=== PATIENT | female | born 2000 | race Caucasian/White ===

== ENCOUNTER 2020-12-25 13:21 | Outpatient (REF) | payer MEDICAID, SELFPAY | END 2020-12-25 13:22 | disposition home or self-care (01) | LOC: HO.LAB 13:21 | PROVIDERS: Visit Provider Internal Medicine | DX: Z20.822 Contact with and (suspected) exposure to COVID-19 (principal) | CPT/HCPCS: C9803; U0003; U0005 ==

== ENCOUNTER 2021-05-01 13:06 | Emergency (ER) | payer MEDICAID, SELFPAY ==
[2021-05-01 13:12] VITALS: BP 120/66; PULSE 76; O2SAT 99
[2021-05-01 13:17] VITALS: BP 104/61; PULSE 79; RESP 18; TEMP 36.6; O2SAT 97; BMI 21.7
[2021-05-01 14:06] LABS: COVID-19 Test Negative (Negative)
[2021-05-01 16:49] VITALS: BP 129/75; PULSE 67; RESP 16; TEMP 36.8; O2SAT 99
--- NOTE | 2021-05-01 16:54 | ED_ITS ---
HPI - URI/Sore Throat General Chief Complaint: Upper Respiratory Symptoms Stated Complaint: SAMPSON,BODYACHES,CHILLS,-VACC Time Seen by Provider: 05/01/21 16:40 Source: patient Mode of arrival: ambulatory Limitations: no limitations History of Present Illness HPI Narrative: 20-year-old female here with complaints of cough, chills, rhinorrhea since Thursday. Patient tells me she has had nausea and vomiting additionally. Of note, she has had nausea and vomiting throughout her but this has been managed with pyridoxine at nighttime. Patient tells me that her son is sick at home and has [id number] disease. She did notice several lesions on her hand 2 days ago. No vaginal bleeding, pelvic cramping. Patient's due date is October of 2021 Related Data Previous Rx's Medication Instructions Recorded ondansetron 4 mg disintegrating 4 mg PO Q6H PRN #10 tab 05/01/21 tablet Allergies Allergy/AdvReac Type Severity Reaction Status Date / Time No Known Allergies Allergy Verified 05/01/21 13:16 Review of Systems Review of Systems: Yes all other systems are reviewed and are negative Constitutional: Constitutional: Reports no additional constitutional complaints, Reports body ache(s), Reports chills, Denies fever(s), Denies headache(s) and Denies weakness Eyes: Eyes: Reports no additional eye complaints and Denies change in vision ENT: Reports system reviewed and no additional complaints, except as documented, Denies dizziness, Denies headache(s), Denies nasal congestion, Denies nasal discharge and Denies neck pain Cardiovascular: Cardiovascular: Reports no additional cardiovascular complaints, Denies chest pain, Denies leg edema and Denies dyspnea Respiratory: Respiratory: Reports no additional respiratory complaints, Reports cough and Denies dyspnea Gastrointestinal: Gastrointestinal: Reports no additional gastrointestinal complaints, Denies abdominal pain, Denies diarrhea, Reports nausea and Reports vomiting Genitourinary: Genitourinary: Reports no additional female genitourinary complaints and Denies urinary incontinence Musculoskeletal: Musculoskeletal: Reports no additional musculoskeletal compl aints, Denies back pain, Denies arthralgias, Denies joint swelling, Denies neck pain, Denies numbness and Denies tingling Integumentary/Breasts: Skin/Breast: Reports system reviewed and no additional complaints, except as docu and Reports rash Neurologic: Reports system reviewed and no additional complaints, except as documented, Denies Abnormal speech present, Denies dizziness, Denies headache(s), Denies numbness, Denies tingling and Denies weakness PMFSH Past Medical History Attestation statement: The following information was validated with the patient. Source: old records reviewed and nursing notes reviewed Medical History Asthma Social History Social History Advance Directives: No Advance Directives Information Provided: Yes Patient : Yes Physical Exam Vital Signs: Vital Signs: Last Vital Signs Temp 98.2 F 05/01/21 16:49 Pulse 67 05/01/21 16:49 Resp 16 05/01/21 16:49 BP 129/75 05/01/21 16:49 Pulse Ox 99 05/01/21 16:49 BMI result Body Mass Index 21.7 Const: General: cooperative, healthy appearing, comfortable and no acute distress Orientation/consciousness: patient oriented x3 Limitations: no limitations HENMT: Head: Yes normal to inspection Ears: hearing grossly normal bilaterally and TM's normal bilaterally General nose exam: Normal external nose present Face and sinus: Yes normal facial exam Mouth: Normal oral and palatal mucosa present Throat: Yes posterior oropharynx normal, Yes tonsils normal and Yes uvula midline Eyes: General: appearance normal, both eyes and all related structures Pupils: Equal, round and reactive pupils present Neck: Neck: Yes normal visual inspection Chest: Chest palpation & inspection: normal inspection of the chest Resp: Effort & Inspection: normal respiratory effort Auscultation: clear to auscultation bilaterally Cardio: Rate: regular rate Rhythm: regular rhythm Peripheral pulses: Peripheral pulses 2+ throughout GI: Inspection: Yes normal to inspection Palpation (GI): Soft to palpation and nontender Auscultation: normal bowel sounds Back/Spine/Pelvis: Thoracic/Lumbar Spine: thoracic and lumbar spine normal to inspection Skin: General skin exam: no rashes or lesions noted Neuro: General: patient oriented x3, no focal motor deficits and normal sensation to monofilament Cranial nerves: Yes Equal, round and reactive pupils present Cognition (Neuro): normal cognition Speech: No Abnormal speech present Gait exam (Neuro): Normal gait present Motor exam (neuro): 5/5 motor strength present throughout Extrem: Other: To the palmar aspect of the left hand there are 4-5 pinpoint lesions noted General: Yes normal to inspection Course Course Course Narrative: 20-year-old female here with complaints of URI symptoms since Thursday in addition to vomiting which she has had during her entire . Patient tells me she is here because she has been unable to keep any fluids down and feels like she may be dehydrated. Her son has [id number] and so she feels that she may have this as well. Rapid COVID test is negative. Exam is benign with the exception of several pinpoint lesions are over the palmar aspect the left hand. Consider [id number]. No -related complaints. Will check labs, place P IV and give normal saline bolus and antiemetic and reassess 1805-labs unremarkable. COVID screen is negative. Patient now tolerating p.o. and is feeling much improved. Likely viral syndrome. Reviewed worrisome signs and symptoms when to return to the emergency department. Comfortable discharge home. MDM - URI/Sore Throat Medical Records Attestation: I reviewed the patient's medical records. Lab Data Attestation: I reviewed the patient's lab results. Result diagrams: 05/01/21 17:12 05/01/21 17:12 Labs: Lab Results 05/01/21 05/01/21 05/01/21 Range/Units 13:27 17:12 17:12 WBC 7.6 (4.8-10.8) X10*3/uL RBC 4.47 (4.20-5.50) X10*6/uL Hgb 13.3 (12.0-16.0) g/dl Hct 39.1 (37.0-47.0) % MCV 87.5 (80.0-98.0) fL MCH 29.8 (27.0-33.0) pg MCHC 34.0 (31.0-35.0) g/dl RDW 12.3 (11.0-16.0) % Plt Count 308 (160-400) X10*3/uL MPV 9.6 (9.4-12.3) fL Immature Gran % (Auto) 0.3 (0.0-0.4) % Neut % (Auto) 82.0 H (45-73) % Lymph % (Auto) 11.8 L (20-40) % [place] % (Auto) 5.5 (2-11) % Eos % (Auto) 0.1 (0-4) % Baso % (Auto) 0.3 (0-2) % Lymph # (Auto) 0.9 L (1.2-4.9) X10*3/uL [place] # (Auto) 0.4 (0.1-1.2) X10*3/uL Eos # (Auto) 0.0 (0.0-0.4) X10*3/uL Baso # (Auto) 0.0 (0.0-0.2) X10*3/uL Abs Immat Gran (auto) 0.02 (0.00-0.03) X10*3/uL Absolute Neuts (auto) 6.2 (2.0-8.3) x10*3/uL Absolute Nucleated RBC 0.000 (0.0-0.012) X10*3/uL Nucleated RBC % (auto) 0.0 (0.0-0.2) /100WBC Sodium 137 (135-145) mmol/L Potassium 3.3 (3.3-5.1) mmol/L Chloride 104 (96-108) mmol/L Carbon Dioxide 20 L (22-29) mmol/L Anion Gap 16 (12-20) BUN 11 (9-16) mg/dL Creatinine 0.56 (0.5-1.4) mg/dL Estim Creat Clear Calc 147.5 Estimated GFR > 60 Random Glucose 75 (60-115) mg/dL Calcium 9.1 (8.4-10.2) mg/dL COVID-19 ([facility]AN) Negative (Negative) COVID-19 Clin Com See Note Discharge Plan Discharge Clinical Impression: Viral infection Patient Disposition: Home, Self-Care Instructions: Viral Syndrome (ED) Additional Instructions: Increase fluids, rest Your COVID test negative Tylenol for pain only Uses Zofran for nausea as needed Prescriptions: New ondansetron 4 mg tablet,disintegrating 4 mg PO Q6H PRN (Reason: nausea and vomiting) Qty: 10 RF: 0 Referrals: Physician,Unknown J [Primary Care Provider] - 2 days
[2021-05-01] MEDS: 0.9 % Sodium Chloride 1,000 ML 999 ML IV (17:14)
[2021-05-01] MEDS: ondansetron HCL 4 MG/2 ML VIAL IVPUSH (17:14)
[2021-05-01 17:23] LABS: MANUAL DIFF FLAG NO
[2021-05-01 17:26] LABS: Basophils Percent Auto 0.3 % (0-2); Eosinophils Percent Auto 0.1 % (0-4); Hematocrit 39.1 % (37.0-47.0); Hemoglobin 13.3 g/dl (12.0-16.0); Imm Gran Abs Auto 0.02 X10*3/uL (0.00-0.03); Imm Gran Pct Auto 0.3 % (0.0-0.4); Lymphocytes Absolute Auto 0.9 X10*3/uL (1.2-4.9); Lymphocytes Percent Auto 11.8 % (20-40); Mean Corpuscular Hemoglobin 29.8 pg (27.0-33.0); Mean Corpuscular Volume 87.5 fL (80.0-98.0); Mean Platelet Volume 9.6 fL (9.4-12.3); Monocytes Absolute Auto 0.4 X10*3/uL (0.1-1.2); Monocytes Percent Auto 5.5 % (2-11); Neutrophils Absolute Auto 6.2 x10*3/uL (2.0-8.3); Platelet Count 308 X10*3/uL (160-400); Red Blood Count 4.47 X10*6/uL (4.20-5.50); Red Cell Distribution Width 12.3 % (11.0-16.0); White Blood Count 7.6 X10*3/uL (4.8-10.8)
[2021-05-01 17:41] LABS: Anion Gap 16 (12-20); Blood Urea Nitrogen 11 mg/dL (9-16); Calcium 9.1 mg/dL (8.4-10.2); Carbon Dioxide 20 mmol/L (22-29); Chloride 104 mmol/L (96-108); Creatinine Clr Calc Pharmacy 147.5; Estimated Glomerular Filt Rate > 60; Glucose Random 75 mg/dL (60-115); Potassium 3.3 mmol/L (3.3-5.1); Sodium 137 mmol/L (135-145)
== END 2021-05-01 18:19 | disposition home or self-care (01) ==
PROVIDERS: Nurse Practitioner Family; Emergency Provider Emergency Medicine Emergency Medical Services
DX: B34.9 Viral infection, unspecified (principal); M79.10 Myalgia, unspecified site; Z79.899 Other long term (current) drug therapy; Z20.822 Contact with and (suspected) exposure to COVID-19
CPT/HCPCS: 36415; 80048; 85025; 87635; 96361; 96374; 99284; J2405

== ENCOUNTER 2022-05-04 19:45 | Emergency (ER) | payer MEDICAID, SELFPAY ==
[2022-05-04 20:10] VITALS: BP 93/48; PULSE 99; RESP 18; TEMP 38.5; O2SAT 98; BMI 18.6
--- NOTE | 2022-05-04 21:57 | ED.GENADULT ---
HPI - General Adult General Chief complaint: General Medical Stated complaint: high temp, vomit, dehydrated, unable to eat Time Seen by Provider: 05/04/22 21:53 Source: patient Mode of arrival: ambulatory Limitations: no limitations History of Present Illness HPI narrative: Patient 21 years old otherwise healthy anemia nausea vomiting headache body aches runny nose since early today patient not vaccinated against COVID Related Data Previous Rx's Medication Instructions Recorded ondansetron 4 mg disintegrating 4 mg PO Q6H PRN nausea and 05/01/21 tablet vomiting #10 tabs benzonatate 200 mg capsule 200 mg PO TID PRN cough #30 caps 05/04/22 ibuprofen 600 mg tablet 600 mg PO Q6H PRN fever or pain 05/04/22 #30 tabs ondansetron 4 mg disintegrating 4 mg PO Q6-8H PRN nausea and 05/04/22 tablet vomiting #7 tabs Allergies Allergy/AdvReac Type Severity Reaction Status Date / Time No Known Allergies Allergy Verified 05/01/21 13:16 Review of Systems Review of Systems: Yes all other systems are reviewed and are negative [facility] Past Medical History Medical History Asthma Social History Social History Alcohol intake: current Alcohol intake frequency: holidays/special occasions only Smoked in Last 30 Days: Yes Substance Use Type: Marijuana Substance Use Frequency: Daily Advance Directives: No Advance Directives Information Provided: No Physical Exam ED Vital Signs: Vital Signs - 24 hr 05/04/22 20:10 05/04/22 22:59 Temperature 101.3 F H 98.9 F Pulse Rate 99 63 Respiratory Rate 18 20 Blood Pressure 93/48 L 105/55 L Pulse Oximetry 98 97 Oxygen Delivery Method Room Air Room Air BMI result Body Mass Index 18.6 Appearance: Alert. Oriented X3. No acute distress. ENT: Pharynx normal. Oral Mucosa moist Neck: Normal inspection. Neck supple. CVS: Normal heart rate and rhythm. Pulses normal. Respiratory: No respiratory distress. Equal air entry bilateral, no wheezing/rales/rhonchi Abdomen: Soft and nontender. Bowel sounds are present, no mass palpable, no CVA tenderness Skin: Skin warm and dry. Normal skin color. Normal skin turgor. Extremities: No lower extremity edema. No calf tenderness Neuro: Oriented X 3. Medications Administered Discontinued Medications Generic Name Dose Route Start Last Admin Trade Name Nimaq PRN Reason Stop Dose Admin Ibuprofen 600 mg 05/04/22 22:10 05/04/22 22:41 Ibuprofen 600 Mg Tablet PO 05/04/22 22:11 600 mg ONCE ONE Administration Ondansetron HCl 4 mg 05/04/22 22:09 05/04/22 22:58 Ondansetron Odt 4 Mg Tab.Rapdis TRANSLINGU 05/04/22 22:10 4 mg ONCE ONE Administration Medical Decision Making Lab Data [facility] Lab Attestation statement: I reviewed the patient's lab results. Labs: Lab Results 05/04/22 05/04/22 05/04/22 Range/Units 21:25 22:26 22:26 Urine Color Dark Yellow Urine Appearance Clear Urine pH 6.5 (5.0-9.0) Ur Specific [place] >= 1.030 H (1.005-1.025) Urine Protein 100 (2+) H (Neg-Trace) mg/dL Urine Glucose (UA) Negative (Negative) mg/dL Urine Ketones >=160 (Negative) mg/dL Urine Blood Trace H (Negative) Urine Nitrite Negative (Negative) Ur Leukocyte Esterase Trace H (Negative) Urine RBC 0-2 (0-2) /HPF Urine WBC 0-5 (0-5) /HPF Ur Squamous Epith Cells 6-10 (0-2) /HPF Urine Bacteria None Seen (None Seen) Hyaline Casts 0-2 (0-2) /LPF Urine Test NEGATIVE (NEGATIVE) Influenza Type A (PCR) NEGATIVE (Negative) Influenza Type B (PCR) NEGATIVE (Negative) RSV RNA Qual (PCR) NEGATIVE (Negative) SARS-CoV-2 RNA (RT-PCR) NEGATIVE (Negative) Discharge Plan Discharge Clinical Impression: Acute viral syndrome Patient Disposition: Home, Self-Care Instructions: Viral Syndrome (ED) Additional Instructions: Drink plenty of fluids Medicine for nausea as prescribed Coughdrops as prescribed Follow with PCP as needed Prescriptions: New ondansetron 4 mg tablet,disintegrating 4 mg PO Q6-8H PRN (Reason: nausea and vomiting) Qty: 7 0RF benzonatate 200 mg capsule 200 mg PO TID PRN (Reason: cough) Qty: 30 0RF ibuprofen 600 mg tablet 600 mg PO Q6H PRN (Reason: fever or pain) Qty: 30 0RF No Action ondansetron 4 mg tablet,disintegrating 4 mg PO Q6H PRN (Reason: nausea and vomiting) Qty: 10 0RF Interventions: ED Discharge Assessment Last Done: 05/05/22 00:07 Discharge Date/Time: 05/04/22 22:50
[2022-05-04 22:09] LABS: Influenza A PCR NEGATIVE (Negative); Influenza B PCR NEGATIVE (Negative); Resp Syncy Virus RNA Qual PCR NEGATIVE (Negative); SARS COV2 PCR INHOUSE NEGATIVE (Negative)
[2022-05-04 22:36] LABS: Appearance Urine Clear; Color Urine Dark Yellow; Glucose Urine UA Negative (Negative); Leukocyte Esterase Urine Trace (Negative); Nitrite Urine Negative (Negative); PH 6.5 (5.0-9.0); Specific Gravity - Urine >= 1.030 (1.005-1.025); UMIC TRIGGER UACC YES; Urine Blood Trace (Negative); Urine Ketones >=160 mg/dL (Negative); Urine Protein 100 (2+) mg/dL (Neg-Trace)
[2022-05-04 22:39] LABS: UPreg QC Valid YES; Urine Pregnancy NEGATIVE (NEGATIVE)
[2022-05-04 22:41] LABS: Bacteria Urine None Seen (None Seen); Hyaline Casts Urine 0-2 /LPF (0-2); RBC Urine 0-2 /HPF (0-2); WBC Urine 0-5 /HPF (0-5)
--- NOTE | 2022-05-04 22:43 | PC.NURSE ---
Patient alert and oriented. Administered ibuprofen and zofran per MAR for nausea and abdominal pain.
--- NOTE | 2022-05-04 22:44 | PC.NURSE ---
No apparent distress, watching tv while resting quietly.
[2022-05-04 22:59] VITALS: BP 105/55; PULSE 63; RESP 20; TEMP 37.2; O2SAT 97
== END 2022-05-04 22:50 | disposition home or self-care (01) ==
PROVIDERS: Emergency Provider Internal Medicine
DX: B34.9 Viral infection, unspecified (principal); R50.9 Fever, unspecified; E86.0 Dehydration; Z20.822 Contact with and (suspected) exposure to COVID-19; Z79.899 Other long term (current) drug therapy
CPT/HCPCS: 0241U; 81001; 81025; 99284